=== PATIENT | male | born 1955 | race Hispanic/Latino ===

== ENCOUNTER 2021-01-29 18:21 | Emergency (ER) | payer OTHER ==
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
[2021-01-29 22:13] VITALS: BP 130/80; TEMP 98; O2SAT 100
== END 2021-01-29 20:28 | disposition home or self-care (01) ==
LOC: ER 18:21
DX: R07.89 Other chest pain (principal); V89.2XXA Person injured in unspecified motor-vehicle accident, traffic, initial encounter
CPT/HCPCS: 71046; 93005; 99284